=== PATIENT | female | born 1985 | race Caucasian/White ===

== ENCOUNTER → 2016-10-15 | Outpatient (CLI) | payer BC ==
[2016-10-15 15:39] LABS: BASO % 0.3 %; BASO ABS # 0.02 K/uL (0-0.2); COMPLETE YES; IG% 0.3 %; LYMPH % 27.3 %; LYMPH ABS # 1.94 K/uL (1.2-3.4); MEAN CELL VOLUME 91.7 fL (80-100); MEAN CORPUSCULAR HEMOGLOBIN 30.2 pg (25-34); MEAN CORPUSCULAR HGB CONC 32.9 g/dl (32-36); MEAN PLATELET VOLUME 11.4 fL (7.4-10.4); MONO % 6.8 %; NEUT % 64.3 %; PLATELET COUNT 234 K/uL (130-400); RED BLOOD COUNT 4.47 M/uL (4.2-5.4)
[2016-10-15 16:01] LABS: ALT/SGPT 23 U/L (12-78); BLOOD UREA NITROGEN 17 mg/dl (7-18); BUN/CREATININE RATIO 26.1 (10-20); CALCIUM 8.6 mg/dl (8.5-10.1); CARBON DIOXIDE 27 mmol/L (21-32); CHLORIDE 107 mmol/L (98-107); CHOLESTEROL 118 mg/dl (0-200); CREATININE 0.64 mg/dl (0.60-1.20); GLUCOSE 83 mg/dl (70-99); POTASSIUM 3.9 mmol/L (3.5-5.1); SODIUM 139 mmol/L (136-145); TRIGLYCERIDES 188 mg/dl (0-150); VERY LOW DENSITY LIPOPROT CALC 38 mg/dl
[2016-10-15 16:12] LABS: ALKALINE PHOSPHATASE 82 U/L (45-117); AST/SGOT 15 U/L (15-37); HDL CHOLESTEROL 59 mg/dl; LDL CHOLESTEROL CALCULATED 21 mg/dl
== END | disposition home or self-care (01) ==
LOC: C.LAB1850 14:26
PROVIDERS: ATTEND Nurse Practitioner Adult Health
DX: Z00.00 Encounter for general adult medical examination without abnormal findings (principal)

== ENCOUNTER → 2016-11-30 | Outpatient (CLI) | payer BC | END | disposition home or self-care (01) | LOC: C.PAPS 14:26 | PROVIDERS: ATTEND Obstetrics & Gynecology | DX: Z01.419 Encounter for gynecological examination (general) (routine) without abnormal findings (principal) ==

== ENCOUNTER → 2017-03-12 | Outpatient (CLI) | payer OTHER | END | disposition home or self-care (01) | LOC: C.LABSPEC 13:47 | PROVIDERS: ATTEND Obstetrics & Gynecology | DX: Z34.01 Encounter for supervision of normal first pregnancy, first trimester (principal) ==

== ENCOUNTER → 2017-03-13 | Outpatient (CLI) | payer OTHER ==
[2017-03-13 16:40] LABS: BASO % 0.3 %; BASO ABS # 0.02 K/uL (0-0.2); EOS % 0.8 %; EOS ABS # 0.06 K/uL (0-0.5); HEMATOCRIT 38.2 % (37-47); IG# 0.02 K/uL (0.00-0.02); LYMPH % 22.4 %; LYMPH ABS # 1.66 K/uL (1.2-3.4); MEAN CELL VOLUME 91.8 fL (80-100); MEAN CORPUSCULAR HEMOGLOBIN 31.3 pg (25-34); MEAN PLATELET VOLUME 10.9 fL (7.4-10.4); MONO % 7.3 %; MONO ABS # 0.54 K/uL (0.11-0.59); NEUT % 68.9 %; PLATELET COUNT 259 K/uL (130-400); RED CELL DISTRIBUTION WIDTH CV 12.6 % (11.5-14.5); RED CELL DISTRIBUTION WIDTH SD 42.2 fL (36.4-46.3)
== END | disposition home or self-care (01) ==
LOC: C.LAB1850 15:21
PROVIDERS: ATTEND Obstetrics & Gynecology
DX: Z34.01 Encounter for supervision of normal first pregnancy, first trimester (principal)

== ENCOUNTER → 2017-05-10 | Outpatient (CLI) | payer OTHER | END | disposition home or self-care (01) | LOC: C.LAB1850 10:17 | PROVIDERS: ATTEND Obstetrics & Gynecology | DX: Z34.02 Encounter for supervision of normal first pregnancy, second trimester (principal) ==

== ENCOUNTER → 2017-09-23 | Outpatient (CLI) | payer OTHER | END | disposition home or self-care (01) | LOC: C.LABSPEC 17:52 | PROVIDERS: ATTEND Obstetrics & Gynecology | DX: Z34.03 Encounter for supervision of normal first pregnancy, third trimester (principal) ==

== ENCOUNTER 2017-10-17 00:04 | Inpatient (IN) | payer OTHER ==
[~2017-10-17] VITALS: Ht 162.6 cm; Wt 67.3 kg
[2017-10-17] MEDS ORDERED: LACTATED RINGER'S 1000ML 1,000 ML IV SCH (00:45)
[2017-10-17] MEDS ORDERED: PENICILLIN G POTASSIUM IV 6 MU in DEXTROSE 5% 250ML 250 ML IV ONE (00:45)
[2017-10-17] MEDS ORDERED: PENICILLIN G POTASSIUM IV 3 MU in DEXTROSE 5% 100ML 100 ML IV PRN (00:45)
[2017-10-17] MEDS ORDERED: LACTATED RINGER'S 1000ML 1,000 ML IV PRN (00:45)
[2017-10-17] MEDS ORDERED: LACTATED RINGER'S 1000ML 500 ML IV PRN (00:47)
[2017-10-17] MEDS ORDERED: OXYTOCIN 30 UNITS/500ML NSS IV PRN ×2 (01:00→10:00)
[2017-10-17 01:15] LABS: HEMATOCRIT 38.9 % (37-47); MEAN CELL VOLUME 93.7 fL (80-100); MEAN CORPUSCULAR HEMOGLOBIN 31.3 pg (25-34); MEAN CORPUSCULAR HGB CONC 33.4 g/dl (32-36); MEAN PLATELET VOLUME 12.1 fL (7.4-10.4); PLATELET COUNT 158 K/uL (130-400); RED CELL DISTRIBUTION WIDTH CV 13.7 % (11.5-14.5); WHITE BLOOD COUNT 8.78 K/uL (4.8-10.8)
[2017-10-17] MEDS ORDERED: PREN-83 (01:52)
[2017-10-17 01:54] VITALS: Ht 162.6 cm; Wt 67.3 kg
[2017-10-17] MEDS ORDERED: SUPERCREAM 0.870 % 15GM JAR EXT PRN (10:00)
[2017-10-17] MEDS ORDERED: OXYCODONE/ACETAMINOPHEN 5-325 TAB PO PRN (10:00)
[2017-10-17] MEDS ORDERED: HYDROCORTISONE ACETATE 25 MG SUPP PR PRN (10:00)
[2017-10-17] MEDS ORDERED: BENZOCAINE 20% AER SPR 82.5 GM CAN EXT PRN (10:00)
[2017-10-17] MEDS ORDERED: ACETAMINOPHEN 325 MG TAB PO PRN (10:00)
[2017-10-17] MEDS ORDERED: LANOLIN OINT EXT PRN (10:00)
[2017-10-17] MEDS ORDERED: DIPHTHERIA/TETANUS/PERTUSSIS 0.5 ML SYR/VIAL IM. ONE (10:00)
--- NOTE | 2017-10-17 13:27 | Discharge Instructions ---
Discharge Instructions Date of Service Oct 17, 2017. Admission Reason for Admission: LABOR Discharge Discharge Diagnosis / Problem: Discharge Goals Goal(s): Routine recovery after delivery Medications Continue Dispensed Medications: supercream, dermaplast, tucks Activity Recommendations Activity Limitations: per Instructions/Follow-up section . Instructions / Follow-Up Instructions / Follow-Up ACTIVITY RECOMMENDATIONS: * Gradual return to full activity over the next 2-3 weeks. * No lifting - nothing heavier than baby over the next 2-3 weeks. * Do not engage in vigorous exercise, sexual activity or sports until cleared by your physician. * Do not drive or operate any motorized equipment until cleared by your physician. * You may shower/bathe daily. MEDICATIONS: For discomfort or pain, you may use Acetaminophen (Tylenol), Ibuprofen (Advil), or Naproxen (Aleve) following the package directions. For constipation you may use Colace following the package directions. BREAST CARE: If you are not breast feeding: * Wear a supportive bra 24 hours a day for one to two weeks. * Avoid stimulating your breasts and nipples as much as possible during the first few weeks after delivery. * When taking a shower, have the warm water hit your back, not breasts. * When your breasts feel full, apply ice packs. Usually three to four times a day helps ease the discomfort. * Take a mild pain medication (Tylenol / Motrin) when you are uncomfortable. If breast feeding: * Use breast milk to lubricate nipples. Lansinoh cream may be used for sore nipples. You do not need to remove cream prior to breast feeding. If using a different brand of cream, check the label for directions regarding removal of cream prior to nursing. * Wear a supportive bra. * If having problems with breasts or breast feeding, call a qm consultant or your health care provider. EPISIOTOMY CARE: After delivery, if you have an episiotomy (stitches), the following steps will ease discomfort and aid healing. * For the first 24 hours after delivery, place ice packs next to your episiotomy to help reduce swelling. * After the first 24 hour-period, sitz baths, either portable or in the tub, are suggested. A shower with a shower arm sprayed over the episiotomy may be comforting. * Leah care should be done after each voiding and bowel movement. Squirt warm water from a plastic bottle over the perineum (region of the body between the anus and urinary opening) and pat dry. * Use Dermoplast to ease discomfort. Shake container. Newborn directly over the episiotomy. Place a Tucks on a clean sanitary pad next to your episiotomy. SPECIAL CARE INSTRUCTIONS: When you are discharged from the hospital, it is important for you to follow the instructions listed below: * During the first week at home, you should be able to care for yourself and your baby. In addition, the usual light household activities are encouraged. * Limit your activities to the way you feel. Do not try to clean the house or move furniture. Be sensible. * If you actively engage in sports and have done so up until the time of your delivery, you may resume these activities as soon as you feel able. This may take up to one month or even longer. Use good judgment. * Continue to take your vitamins for at least six weeks after the of your baby. * Your diet need not be limited unless you were on a special diet before your delivery. Breast-feeding mothers need around 2500 calories per day and at least 64-80 ounces of fluid per day (8 to 10 glasses). * You should eat foods from the four major food groups. Crash diets or fad diets are to be avoided. Eating lean meats, fresh fruits and vegetables, low-fat dairy products, high fiber foods and a regular exercise program, will help you get back to your pre- weight without putting your health at risk. * Constipation is sometimes a problem after delivery. Take a mild laxative as needed. If breast feeding, Milk of Magnesia is acceptable to use. You may use a suppository or Fleets enema if no episiotomy. * A daily shower or tub bath is suggested. Be sure to thoroughly and gently dry the perineum. * A bloody vaginal discharge will usually continue until around four weeks post . A small amount of bleeding may continue for as long as six weeks. Vaginal discharge changes from the bright red bleeding after delivery to pink then brownish and finally yellowish-pink before becoming white and disappearing. * Bleeding may increase with activity. Your first period may come in 4-8 weeks. If you are breast feeding, your period may be delayed even longer. * [place] (sex) can begin whenever both you and your partner feel comfortable and do not have any form of genital infection. It is recommended that you wait at least six weeks for internal and external healing to occur. If you have questions, please talk to your health care practitioner. A condom should be used to prevent infection and . * Foreplay, gentle intercourse and lubrication is very important the first several times to prevent pain. A water-based lubricant such as K-Y jelly or Astroglide may be used. * If you have RH negative blood and your baby is RH positive, you will receive RHOGAM by injection prior to discharge. The nurse will give you a card to keep with you that has the date and place that you received RHOGAM after delivery. * During your care, you had a Rubella screen done to check for the presence of rubella antibodies in your blood. If your test was negative, you will receive a Rubella vaccine prior to discharge. This vaccine may cause a fever, soreness at the injection site and flu-like symptoms. If these symptoms persist, notify your health care practitioner. is not advised for one month after a Rubella vaccine. * Verbalizes understanding of car seat law as reviewed with patient nursing. * Car Seat hand-out given and reviewed with patient by nursing. * Shaken baby information reviewed with patient by nursing. Call you doctor if: * Heavy bleeding (saturating several pads an hour) or passing clots the size of your fist. * A fever >101 degrees F (38.3 degrees C) on two occasions four hours apart and /or chills. * Unusual pain in the pelvic or vaginal areas. * "Baby Blues" lasting longer than two weeks. If you have any questions or concerns, call your health care practitioner at . FOLLOW UP VISIT: * Please call the office at to schedule a 6 week examination. It is important you keep this appointment. It is important for you to make arrangements for either yearly or twice yearly check-ups thereafter. Current Hospital Diet Patient's current hospital diet: Regular OB Diet Discharge Diet Recommended Diet: Regular OB Diet Pending Studies Studies pending at discharge: no Medical Emergencies . Who to Call and When: Medical Emergencies: If at any time you feel your situation is an emergency, please call 911 immediately. . Non-Emergent Contact Non-Emergency issues call your: Industrial X Ray Operator Call Non-Emergent contact if: temperature is above 100.5 . . "Provider Documentation" section prepared by Oswaldo Echeverria. .
[2017-10-17 13:30] VITALS: BP 119/78; PULSE 104; TEMP 36.7; O2SAT 97
--- NOTE | 2017-10-17 14:27 | DELIVERY SUMMARY ---
DATE OF OPERATION: 10/17/2017 PREOPERATIVE DIAGNOSES: 1. Intrauterine at 39 and 6/7th weeks. 2. Active labor. POSTOPERATIVE DIAGNOSES: 1. Intrauterine at 39 and 6/7th weeks. 2. Active labor. PROCEDURES: 1. Normal spontaneous vaginal delivery. 2. Periclitoral laceration, right labial laceration and vaginal laceration with repair. SURGEON: Mague Hendrix MD. ANESTHESIA: Local infiltration of lidocaine to the vulva and perineum. ESTIMATED BLOOD LOSS: 350 mL. DESCRIPTION OF PROCEDURE: The patient presented to labor and delivery and active labor. She progressed spontaneously. She had ruptured it at approximately 10:30 the night before for clear fluid. She then progressed spontaneously without need for augmentation with a category 1 fetus to complete, complete and +3 station. She pushed for approximately 1 hour to deliver a live female infant in VIRGIL presentation. The nose and mouth were bulb suctioned on the perineum. A loose nuchal cord x1 was reduced. The infant was vigorous and the nose and mouth were again bulb suctioned and the was placed on the maternal abdomen for drying and attention where the cord was clamped and cut at 1 minute of life. Cord blood and segment were obtained. Placenta was delivered spontaneously and intact with a 2-vessel cord that was known prior to delivery. Cervix, sulci and rectum as well as the perineum were examined and found to be intact. A tear just underneath the clitoris and above the urethral meatus was repaired with interrupted sutures of 4-0 Vicryl. A red rubber catheter was placed in the urethra to lexii for visualization. A right labial laceration was then repaired with interrupted 4-0 Vicryl and a small vaginal laceration at the introitus was repaired with a large [id number] suture of 3-0 Vicryl. Hemostasis was obtained with dilute Pitocin and fundal massage. Estimated blood loss of 350 mL. Apgars were 8 and 9. Mother and baby doing well at the end of the delivery. I attest to the content of the Intraoperative Record and any orders documented therein. Any exception s are noted below.
[2017-10-17 15:20] VITALS: BP 119/73; PULSE 92; TEMP 36.8
[2017-10-17 19:10] VITALS: BP 113/71; PULSE 102; TEMP 37
[2017-10-17] MEDS: DOCUSATE SODIUM 100 MG CAP PO SCH (20:49)
[2017-10-17] MEDS: IBUPROFEN 600 MG TAB PO PRN (21:01)
[2017-10-17 23:20] VITALS: BP 125/81; PULSE 71; TEMP 36.5; O2SAT 98
[2017-10-18 04:05] VITALS: BP 110/73; PULSE 76; TEMP 36.8; O2SAT 97
[2017-10-18] MEDS: IBUPROFEN 600 MG TAB PO PRN ×2 (04:18→21:56)
--- NOTE | 2017-10-18 06:36 | Progress Note ---
Subjective Oct 18, 2017. Subjective conversation w/ patient, physical exam Ambulation: ambulating normally Voiding: no voiding problems Passing Gas: Yes Diet Tolerance: Regular Diet Lochia: Moderate Feeding Type: Breast Feeding Pain: improving 2/10 now Review of Systems Constitutional: No fever, No chills, No sweats Respiratory: No cough, No sputum, No wheezing Cardiac: No chest pain, No palpitations Abdomen: No pain, No nausea, No vomiting, No diarrhea Female : No dysuria Objective Vital Signs Date Time Temp Pulse Resp B/P (MAP) Pulse Ox O2 Delivery O2 Flow Rate FiO2 10/18/17 04:05 36.8 76 18 110/73 (85) 97 Room Air 10/17/17 23:20 36.5 71 18 125/81 (96) 98 Room Air 10/17/17 19:10 37.0 102 18 113/71 (85) Room Air 10/17/17 15:20 Room Air 10/17/17 15:20 36.8 92 18 119/73 (88) Room Air 10/17/17 13:30 36.7 104 18 119/78 (92) 97 Room Air 10/17/17 13:30 Room Air Physical Exam General Appearance: WELL-APPEARING, NO APPARENT DISTRESS Respiratory/Chest: chest non-tender, normal breath sounds Cardiovascular: regular rate, rhythm Abdomen: normal bowel sounds Fundus: Firm, Relation to Umbilicus (-1cm) Extremities: non-tender, no calf tenderness Laboratory Results Last 24 Hours Test 10/18/17 04:44 Medications Current Inpatient Medications Medications (Trade) Dose Ordered Sig/Shira Route Start Time Stop Time Status Last Admin Dose Admin Oxytocin (Pitocin IV) 30 units UD PRN IV 10/17/17 10:00 11/16/17 09:59 10/17/17 10:41 30 UNITS Benzocaine (Dermoplast Aero Spr) 1 appln PRN PRN EXT 10/17/17 10:00 11/16/17 09:59 10/17/17 13:40 1 APPLN Cocaine HCl (Supercream 0.870% Cr) BID PRN EXT 10/17/17 10:00 10/31/17 09:59 Hydrocortisone Acetate (Anusol Hc Supp) 25 mg BID PRN GA 10/17/17 10:00 11/16/17 09:59 Lanolin (Lanolin Oint) PRN PRN EXT 10/17/17 10:00 11/16/17 09:59 Prenat Multivit/ [place]/Iron/Folic Ac ( Vitamin Tab) 1 tab DAILY PO 10/18/17 08:00 11/17/17 07:59 Ibuprofen (Motrin Tab) 600 mg Q4H PRN PO 10/17/17 10:00 11/16/17 09:59 10/18/17 04:18 600 MG Acetaminophen (Tylenol Tab) 650 mg Q6H PRN PO 10/17/17 10:00 11/16/17 09:59 Oxycodone/ Acetaminophen (Percocet 5-325mg Tab) 1 tab Q4H PRN PO 10/17/17 10:00 10/31/17 09:59 Docusate Sodium (coLACE CAP) 100 mg BID PO 10/17/17 20:00 11/16/17 19:59 10/17/17 20:49 100 MG Assessment and Plan Post- Day#: 1 Continue Routine Care: 32 yo PPD1 s/p -AFVSS, Pt doing well resting comfortably -F/U CBC HGB 13.0 on admission no si/sx of anemia -Plan is to breast feed -Tolerating regular diet, no n/v -Continue to encourage ambulation -Routine care Resident Physician Supervision Note: I interviewed and examined the patient. Discussed with Dr. Echeverria and agree with findings and plan as documented in the note. Any exceptions or clarifications are listed here: Doing well. Routine care. Documented By: Mague Hendrix Resident Tracking Resident Involvement: Resident Care Provided Care Provided: Adult Hospital Medicine
[2017-10-18 06:53] LABS: HEMATOCRIT 33.4 % (37-47); HEMOGLOBIN 10.9 g/dL (12.0-16.0)
[2017-10-18 08:00] VITALS: BP 115/74; PULSE 83; TEMP 36.6; O2SAT 96
[2017-10-18] MEDS: DOCUSATE SODIUM 100 MG CAP PO SCH ×2 (08:16→20:01)
[2017-10-18] MEDS: PRENATAL VITAMIN TAB PO SCH (08:16)
[2017-10-18 12:00] VITALS: BP 112/76; PULSE 88; TEMP 36.5; O2SAT 98
[2017-10-18 16:15] VITALS: BP 128/80; PULSE 93; TEMP 36.4
[2017-10-19 00:10] VITALS: BP 115/73; PULSE 74; TEMP 36.6
--- NOTE | 2017-10-19 07:15 | Progress Note ---
Subjective Oct 19, 2017. Subjective Voiding: no voiding problems Comment: conversation w/ patient, physical exam Ambulation: ambulating normally Voiding: no voiding problems Passing Gas: Yes Diet Tolerance: Regular Diet Lochia: Small (improving) Feeding Type: Breast Feeding Pain: improving 03/13 Review of Systems Constitutional: No fever, No chills, No sweats Respiratory: No cough, No sputum, No wheezing Cardiac: No chest pain, No palpitations Abdomen: No pain, No nausea, No vomiting, No diarrhea Female : No dysuria Objective Vital Signs Date Time Temp Pulse Resp B/P (MAP) Pulse Ox O2 Delivery O2 Flow Rate FiO2 10/19/17 00:10 36.6 74 18 115/73 (87) Room Air 10/19/17 00:10 Room Air 10/18/17 16:15 Room Air 10/18/17 16:15 36.4 93 18 128/80 (96) Room Air 10/18/17 12:00 36.5 88 20 112/76 (88) 98 Room Air 10/18/17 08:35 Room Air 10/18/17 08:00 36.6 83 18 115/74 (88) 96 Room Air Physical Exam General Appearance: WELL-APPEARING, NO APPARENT DISTRESS Respiratory/Chest: chest non-tender, normal breath sounds Cardiovascular: regular rate, rhythm Abdomen: normal bowel sounds Fundus: Firm, Relation to Umbilicus (below) Extremities: non-tender, no calf tenderness Laboratory Results Date Time Temp Pulse Resp B/P (MAP) Pulse Ox O2 Delivery O2 Flow Rate FiO2 10/19/17 00:10 36.6 74 18 115/73 (87) Room Air 10/19/17 00:10 Room Air 10/18/17 16:15 Room Air 10/18/17 16:15 36.4 93 18 128/80 (96) Room Air 10/18/17 12:00 36.5 88 20 112/76 (88) 98 Room Air 10/18/17 08:35 Room Air 10/18/17 08:00 36.6 83 18 115/74 (88) 96 Room Air Last Resulted 10/17/17 01:05 10/18/17 06:41 Medications Current Inpatient Medications Medications (Trade) Dose Ordered Sig/Shira Route Start Time Stop Time Status Last Admin Dose Admin Oxytocin (Pitocin IV) 30 units UD PRN IV 10/17/17 10:00 9/15/18 09:59 10/17/17 10:41 30 UNITS Benzocaine (Dermoplast Aero Spr) 1 appln PRN PRN EXT 10/17/17 10:00 11/16/17 09:59 10/17/17 13:40 1 APPLN Cocaine HCl (Supercream 0.870% Cr) BID PRN EXT 10/17/17 10:00 10/31/17 09:59 Hydrocortisone Acetate (Anusol Hc Supp) 25 mg BID PRN NC 10/17/17 10:00 11/16/17 09:59 Lanolin (Lanolin Oint) PRN PRN EXT 10/17/17 10:00 11/16/17 09:59 Prenat Multivit/ [place] [place]/Iron/Folic Ac ( Vitamin Tab) 1 tab DAILY PO 10/18/17 08:00 11/17/17 07:59 10/18/17 08:16 1 TAB Ibuprofen (Motrin Tab) 600 mg Q4H PRN PO 10/17/17 10:00 11/16/17 09:59 10/18/17 21:56 600 MG Acetaminophen (Tylenol Tab) 650 mg Q6H PRN PO 10/17/17 10:00 11/16/17 09:59 Oxycodone/ Acetaminophen (Percocet 5-325mg Tab) 1 tab Q4H PRN PO 10/17/17 10:00 10/31/17 09:59 Docusate Sodium (coLACE CAP) 100 mg BID PO 10/17/17 20:00 11/16/17 19:59 10/18/17 20:01 100 MG Assessment and Plan Post- Day#: 2 Continue Routine Care: Resident Physician Supervision Note: I interviewed and examined the patient. Discussed with Dr. Echeverria and agree with findings and plan as documented in the note. Any exceptions or clarifications are listed here: [None] Documented By: Eugenie Briones 32 yo PPD1 s/p -AFVSS, Pt doing well resting comfortably -F/U CBC HGB 10.9 pp down from 13.0 appropriate s/p delivery, no si/sx -Plan is to bottle feed -Tolerating regular diet -Continue to encourage ambulation -Routine care -Provided Discharge Counseling regarding vaginal bleeding, fever , f/u 6 weeks, no heavy lifting for 2-3 weeks, breast feeding, taking pre- vitamin, nothing in the vagina or intercourse Resident Tracking Resident Involvement: Resident Care Provided Care Provided: Adult [facility] Medicine
[2017-10-19 07:40] VITALS: BP 109/72; PULSE 81; TEMP 37; O2SAT 97
[2017-10-19] MEDS: DOCUSATE SODIUM 100 MG CAP PO SCH (07:45)
[2017-10-19] MEDS: PRENATAL VITAMIN TAB PO SCH (07:45)
[2017-10-19] MEDS: IBUPROFEN 600 MG TAB PO PRN (07:47)
[2017-10-19 13:45] VITALS: BP_DIAS 72; PULSE 81; TEMP 37
== END 2017-10-19 14:15 | disposition home or self-care (01) | DRG 775 ==
LOC: C.LD 00:04 → C.OPB 00:04 → C.LD 00:47 → C.OBG 13:13 → EDSTATUS 10-18 00:02
PROVIDERS: ADMIT Obstetrics & Gynecology; ATTEND Obstetrics & Gynecology
PROC: 0UQMXZZ Repair Vulva, External Approach (ICD-10-PCS; principal; 2017-10-17)
PROC: 0TQDXZZ Repair Urethra, External Approach (ICD-10-PCS; principal; 2017-10-17)
PROC: 10E0XZZ Delivery of Products of Conception, External Approach (ICD-10-PCS; principal; 2017-10-17)
DX: O69.89X0 Labor and delivery complicated by other cord complications, not applicable or unspecified (principal); O70.0 First degree perineal laceration during delivery; O71.82 Other specified trauma to perineum and vulva; O69.81X0 Labor and delivery complicated by cord around neck, without compression, not applicable or unspecified; Z3A.39 39 weeks gestation of pregnancy; Z37.0 Single live birth

== ENCOUNTER 2021-02-16 01:46 | Inpatient (IN) ==
[2021-02-16] MEDS ORDERED: PENICILLIN G POTASSIUM 6 MU in DEXTROSE 5% 250 ML IV STA (02:08)
[2021-02-16] MEDS ORDERED: OXYTOCIN 30 UNITS/500 ML BAG IV PRN (02:08)
[2021-02-16] MEDS ORDERED: LACTATED RINGER'S 1,000 ML IV PRN (02:08)
[2021-02-16 02:46] LABS: Hematocrit (blood only) 42.4 % (37-47); Hemoglobin 14.2 g/dL (12.0-16.0); Mean Corpuscular Hemoglobin 31.6 pg (25-34); Mean Corpuscular Hgb Conc 33.5 g/dL (32-36); Mean Corpuscular Volume 94.4 fL (80-100); Mean Platelet Volume 11.9 fL (7.4-10.4); Platelet Count 189 K/uL (130-400); RDW Coefficient of Variation 14.4 % (11.5-14.5); RDW Standard Deviation 49.7 fL (36.4-46.3); Red Blood Count 4.49 M/uL (4.2-5.4); White Blood Count 8.62 K/uL (4.8-10.8)
--- NOTE | 2021-02-16 03:13 | History & Physical Report ---
Date of Service February 16, 2021 Assessment & Plan (1) Elderly multigravida: Plan: SROM/Labor. Patient desires natural childbirth with no intervention. Allow spontaneous progress. PCN for GBS+ is ordered and being given. Admission and Anticipated Discharge Date Admission Date: February 16, 2021 History of Present Illness Primary Care Provider: Kailey Manriquez MD 36yo at 41w0d presents with SROM and Labor onset at home overnight. She was scheduled for postdates IOL in the morning. She has good FM, no VB and the fluid is clear. She is noted to be GBS positive, AMA >age 35, and have had a arrythmia auscultated between 35-37 weeks that more recently has been normalized. 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 Brother No problems noted. Son No problems noted. Denies family history of Ovarian cancer Prostate cancer Heart disease Myocardial infarction Stroke Asthma Social History (Updated 01/06/21 @ 11:11 by MARCELA Forbes) Smoking Status: Never smoker Second Hand Exposure: No; Hx Alcohol Use: Yes Hx Substance Use: No Preferred Language: Bengali Communication Ability: Effective Visual Impairment: No Limitations Hearing Ability: Normal Machine I Cutter Required: No Beliefs That Will Affect Care: None marital status: marital status details: Brian Alaniz (35) [phone] Current Living Situation: Spouse Current Living Situation Comment: Lives with spouse and son current occupational status: employed 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 Other Information That Helps Us Care for You: No Feels Safe at Home: Yes Safety Concerns: Feels Safe At This Time Childhood Exposure to Second-Hand Smoke: No Dental Care, Regularly: Yes Physical Activity Frequency: 3-4 Times per Week Seatbelt Use: always Sunscreen Use: Yes Assistive Devices: Contacts and Glasses Physical Exam Genitourinary: SROM grossly for clear fluid per RN Exam /-1 per RN FHT Cat 1 [place] Q2m Results & Data Results & Data ([facility]) Vital Signs (Past 12 Hours) Vital Signs Temp Pulse Resp BP 02/16/21 02:22 97.9 F 92 H 18 131/89 02/16/21 02:05 92 H 131/89 Code Status & VTE Plan VTE Prophylaxis Plan VTE Prophylaxis will be ordered: Yes PG Care Time/CCT Total # of Minutes Spent Total Time Spent with Patient: Total time spent is greater than 50% in coordination of care (as documented) at patient's floor/unit and/or counseling patient: Coding Level of Care Code None Diagnoses Elderly multigravida O09.529
--- NOTE | 2021-02-16 04:23 | Labor Progress Brief Note ---
Date of Service February 16, 2021 Subjective Patient feeling urge to push, requests exam Assessment & Plan (1) Normal labor and delivery: Plan: Labor progressing, but not yet ready to push. Offered AROM as I don't think the patient is likely to remain long enough to get her second dose of GBS antibiotics even if we leave her membranes intact, and she is struggling with pain and urges to push but not yet completely dilated. Initially she declined, and I left the room to return to the nursing station. The FOB then came out to the nursing station saying she had changed her mind and wanted to have her m embranes ruptured to try to hurry the last bit of labor along. I returned to the room with Divya Mckenzie RN and AROM was performed for clear fluid. Admission and Anticipated Discharge Date Admission Date: February 16, 2021 Physical Exam Genitourinary: 90/0 FHT Cat 1 [place] Q2 intact bag Results & Data ([facility]) Vital Signs (Past 12 Hours) Vital Signs Temp Pulse Resp BP 02/16/21 03:55 97.9 F 18 02/16/21 02:22 97.9 F 92 H 18 131/89 02/16/21 02:05 92 H 131/89 Coding Level of Care Code None Diagnoses Normal labor and delivery O80
--- NOTE | 2021-02-16 04:58 | Delivery Summary ---
Vaginal Delivery Summary Date of Service February 16, 2021 Vaginal Delivery Summary DIAGNOSES: 1. [place] intrauterine at 41w0d gestation. 2. Spontaneous onset of labor. 3. Group B Streptococcus Pos. PROCEDURE: Spontaneous vaginal delivery with patient declining repair of periclitoral laceration. SURGEON: Radha Luan MD. INFORMATION SECURITY MANAGER: None. ESTIMATED BLOOD LOSS: 300 mL. COMPLICATIONS: None. PLACENTA: Spontaneous and intact with a 3-vessel cord. DISPOSITION: Stable to labor and delivery. DESCRIPTION: The patient pushed well and brought the head to in DOA position. The infant's head was allowed to deliver with contraction force and n o further active pushing, with the perineum protected during this time. There was a single nuchal cord. The left shoulder was anterior. The shoulders and body delivered without any difficulty, and the was placed on the maternal abdomen. It was vigorous and moving all extremities, and making respiratory efforts. The cord was doubly clamped by the MD and then cut by the FOB. The placenta delivered spontaneously and was noted to be intact and with a 3VC. The cervix, vagina and perineum were examined and were found to have a periclitoral laceration which was hemostatic. Repair with local anesthetic was offered to the patient but she declined. The fundus was firm and lochia minimal immediately after delivery. [facility] Vaginal Delivery Charge Vaginal Delivery Codes: 85963 global code for the antepartum, delivery, and post-
[2021-02-16] MEDS ORDERED: PENICILLIN G POTASSIUM 3 MU in DEXTROSE 5% 100 ML IV PRN (05:11)
[2021-02-16] MEDS ORDERED: BENZOCAINE 20% AER SPR 82.5 GM CAN EXT PRN (05:17)
[2021-02-16] MEDS ORDERED: ACETAMINOPHEN 325 MG TAB PO PRN (05:17)
[2021-02-16] MEDS ORDERED: DIPHTHERIA/TETANUS/PERTUSSIS 0.5 ML SYR/VIAL IM ONE (05:17)
[2021-02-16] MEDS ORDERED: SUPERCREAM 0.870% 15 GM JAR EXT PRN (05:17)
[2021-02-16] MEDS ORDERED: HYDROCORTISONE ACETATE 25 MG SUPP PR PRN (05:17)
[2021-02-16] MEDS ORDERED: oxyCODONE/ACETAMINOPHEN 5mg/325mg TAB PO PRN (05:17)
[2021-02-16] MEDS: IBUPROFEN 600 MG TAB PO PRN ×2 (07:37→12:56)
[2021-02-16] MEDS: PRENATAL VITAMIN 1 TAB PO SCH (07:37)
[2021-02-16] MEDS: DOCUSATE SODIUM 100 MG CAP PO SCH ×2 (07:37→21:16)
--- NOTE | 2021-02-17 07:26 | Obstetrical Progress Note ---
Date of Service February 17, 2021 Assessment & Plan (1) Encounter for care and examination after delivery: Plan: 36yo PPD 1 s/p at 41 weeks -Continue routine care -Vitals reviewed- HDS, afebrile -GBS positive adequately treated -Encourage ambulation, regular diet -Pain control with ibuprofen, acetaminophen, Percocet PRN -Encourage -Hgb pending -discharge likely today -F/u in 6 weeks with OB after discharge Plan: Patietn seen and evaluated and agree with the above findings and plan. Stable for discharge. Admission and Anticipated Discharge Date Admission Date: February 16, 2021 Subjective Ambulation: yes Voiding: yes Passing Gas: yes BM: yes Diet Tolerance: regular Lochia: small Feeding Type: Current Pain Level(1-10): 1, mild cramping Review of Systems Review of Systems: Denies fevers/chills. Denies dyspnea, cough. Denies chest pain. Denies breast pain. Denies dysuria. Denies headache. Denies nausea, vomiting. Physical Exam Physical Exam: General: Alert, oriented, no acute distress Cardiac: Regular rate and rhythm, normal S1, S2. No murmurs appreciated. Respiratory: Clear to auscultation bilaterally, symmetric chest rise and fall. No wheezes or crackles. No increased work of breathing or accessory muscle use Abdomen: Soft, nontender. Fundus firm and palpable at 1 cm below umbilicus. No guarding or rebound. Extremities: Warm, dry. No lower extremity edema, erythema or swelling. Results & Data ([facility]) Vital Signs (Past 12 Hours) Vital Signs Temp Pulse Resp BP Pulse Ox 02/16/21 23:00 36.9 C 79 16 123/78 97 02/16/21 19:37 36.8 C 79 18 120/79 97 Resident Activity Tracking Resident Involvement: Resident Care Provided Care Provided: OB Delivery
[2021-02-17 07:42] LABS: Hematocrit (blood only) 36.8 % (37-47); Mean Corpuscular Hemoglobin 30.7 pg (25-34); Mean Corpuscular Hgb Conc 32.6 g/dL (32-36); Mean Corpuscular Volume 94.1 fL (80-100); Mean Platelet Volume 12.2 fL (7.4-10.4); Platelet Count 156 K/uL (130-400); RDW Coefficient of Variation 14.8 % (11.5-14.5); RDW Standard Deviation 50.3 fL (36.4-46.3); Red Blood Count 3.91 M/uL (4.2-5.4); White Blood Count 9.34 K/uL (4.8-10.8)
[2021-02-17] MEDS: PRENATAL VITAMIN 1 TAB PO SCH (07:45)
[2021-02-17] MEDS: DOCUSATE SODIUM 100 MG CAP PO SCH (07:45)
== END 2021-02-17 17:45 | disposition home or self-care (01) | DRG 807 ==
LOC: 4S1 01:46 → 4S2 08:09
DX: Z37.0 Single live birth; O70.0 First degree perineal laceration during delivery; Z3A.41 41 weeks gestation of pregnancy; O99.824 Streptococcus B carrier state complicating childbirth